=== PATIENT | male | born 1950 | race Caucasian/White ===

== ENCOUNTER 2018-02-13 06:43 | Day surgery (SDC) | payer BC ==
[~2018-02-13] VITALS: Ht 167.6 cm; Wt 77.1 kg
[~2018-02-13 06:43] MED LIST: AMLODIPINE BESYL5 MG; ATORVASTATIN 40 MG T; CIALIS5 MG; CIALIS5 MG PO; KLONOPIN0.5 M1 PO; LIPITOR20 MG PO; NITROSTAT0.4 MG SL; NORVASC2.5 MG PO; OMEPRAZOLE40 M1 PO; PLAVIX75 MG PO
[2018-02-13 08:16] VITALS: BP 182/97
[2018-02-13] MEDS ORDERED: ULTRAM50 MG PO (11:16)
[2018-02-13 12:10] VITALS: BP 119/65
[2018-02-13 13:10] VITALS: BP 128/72
[2018-02-13 14:04] VITALS: BP 122/75
== END 2018-02-13 14:10 | disposition home or self-care (01) ==
LOC: SDC 06:43
PROC: 0YU64JZ Supplement Left Inguinal Region with Synthetic Substitute, Percutaneous Endoscopic Approach (ICD-10-PCS; principal; 2018-02-13)
DX: K40.20 Bilateral inguinal hernia, without obstruction or gangrene, not specified as recurrent (principal); F41.9 Anxiety disorder, unspecified; E78.5 Hyperlipidemia, unspecified; K21.9 Gastro-esophageal reflux disease without esophagitis; I10 Essential (primary) hypertension; Z79.02 Long term (current) use of antithrombotics/antiplatelets; Z95.5 Presence of coronary angioplasty implant and graft; Z87.891 Personal history of nicotine dependence
CPT/HCPCS: C1727; C1781; J0330; J0690; J1100; J1170; J1885; J2001; J2405; J2710; J2795; J3010; J3475